=== PATIENT | male | born 2005 | race Two or more races ===

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

== ENCOUNTER 2025-02-16 08:18 | Emergency (ER) | payer OTHER ==
[~2025-02-16] VITALS: Ht 170.2 cm; Wt 65.8 kg
[2025-02-16] MEDS ORDERED: 0.9 % SODIUM CHLORIDE 1,000 ML IV STA (08:31)
[2025-02-16] MEDS ORDERED: LEVO-T25 MCG PO (08:42)
[2025-02-16] MEDS ORDERED: ACETAMINOPHEN 500 MG GEL..CAP PO ONE (09:15)
[2025-02-16 09:33] LABS: BASO % 0.7 % (0.1-1.2); EOS # 0.06 (0.04-0.54); EOS % 1.1 % (0.7-7.0); HEMATOCRIT 39.9 % (40.1-51.0); HEMOGLOBIN 14.2 g/dL (13.7-17.5); LYMPH # 1.23 (1.18-3.74); LYMPH % 22.8 % (19.3-53.1); MONO # 0.41 (0.24-0.82); MONO % 7.6 % (4.7-12.5); NEUT # 3.64 (1.56-6.13); NEUT % 67.6 % (34.0-71.1); PLATELET COUNT 215 K/uL (163-369); RED BLOOD COUNT 4.58 M/uL (4.63-6.08); RED CELL DISTRIBUTION WIDTH 12.1 % (11.6-14.4)
[2025-02-16 09:51] LABS: PH,URINE 5.5 (5.0-8.0); URINE APPEARANCE Clear; URINE BILIRRUBIN Negative (NEGATIVE); URINE BLOOD Negative; URINE COLOR Yellow; URINE GLUCOSE Negative (NEGATIVE); URINE KETONE Negative (NEGATIVE); URINE LEUKOCYTE Negative; URINE NITRATE Negative; URINE PROTEIN Negative (NEGATIVE); URINE UROBILINOGEN 0.2 E.U./dl
[2025-02-16 09:53] LABS: URINE RBC 7.9 uL (0.0-20.8)
[2025-02-16] MEDS ORDERED: ONDANSETRON HCL 2 MG/ML VIAL IV STA (09:53)
[2025-02-16 10:02] LABS: URINE EPITHELIAL CELLS 0.6 uL (0.0-38.8); URINE WBC 1.4 uL (0.0-23.2)
[2025-02-16 10:22] LABS: COCAINE NEGATIVE (NEGATIVE); METHADONE NEGATIVE (NEGATIVE); OPIATES NEGATIVE (NEGATIVE); THC ( Cannabinoids) NEGATIVE (NEGATIVE)
[2025-02-16 11:01] LABS: ALBUMIN 3.9 gm/dL (3.4-5.0); BILIRUBIN TOTAL 0.95 mg/dL (0.3-1.2); CALCIUM 8.7 mg/dL (8.5-10.1); CREATININE SERUM 1.2 mg/dL (0.70-1.30); GLOBULINA 2.6 G/DL (2.4-3.5); POTASSIUM 4.14 mEq/L (3.5-5.1); TOTAL PROTEIN 6.5 gm/dL (6.4-8.2); TSH 2.26 uIU/mL (0.358-3.74)
== END 2025-02-16 13:41 | disposition home or self-care (01) ==
LOC: EMR PED 08:18
PROVIDERS: Emergency Medicine
DX: R55 Syncope and collapse (principal); G40.89 Other seizures; E03.8 Other specified hypothyroidism

== ENCOUNTER → 2025-02-23 06:21 | Outpatient (CLI) | payer OTHER ==
[~2025-02-23 06:21] MED LIST: LEVO-T25 MCG PO
== END | disposition home or self-care (01) ==
LOC: LAB 06:21
PROVIDERS: ATTEND Anesthesiology
DX: E16.2 Hypoglycemia, unspecified (principal)

== ENCOUNTER 2025-09-18 15:02 | Outpatient (CLI) | payer OTHER ==
[2025-09-18 15:55] LABS: BASO % 0.6 % (0.1-1.2); EOS # 0.06 (0.04-0.54); EOS % 1.7 % (0.7-7.0); LYMPH # 0.78 (1.18-3.74); LYMPH % 22.3 % (19.3-53.1); MEAN PLATELET VOLUME 9.90 fl (9.4-12.4); MONO # 0.78 (0.24-0.82); NEUT # 1.86 (1.56-6.13); NEUT % 53.1 % (34.0-71.1); RED CELL DISTRIBUTION WIDTH 11.3 % (11.6-14.4)
[2025-09-18 16:37] LABS: BAND MAN 1.0 %; LYMPHOCYTE MAN 20.0 %; MONO % 22.3 % (4.7-12.5); NEUTROPHILS MAN 55.0 %
[2025-09-18 16:38] LABS: MONOCYTE MAN 21.0 %
[2025-09-18 16:45] LABS: INR 1.03
[2025-09-18 17:04] LABS: ALT/SGPT 41.0 U/L (12-78); AST/SGOT 31.0 U/L (15-37); BILIRUBIN TOTAL 0.9 mg/dL (0.3-1.2); BUN CREA RATIO 21.0 (7.0-25.0); CHOL HDL RATIO 2.4 (0-5.0); CREATININE SERUM 1.02 mg/dL (0.70-1.30); GFR 93.11; GLOBULINA 3.1 G/DL (2.4-3.5); GLUCOSE FASTING 89.0 mg/dL (65-100); HDL 58.0 mg/dl (40-60); LDL 72.0 mg/dl (0-130); OSMOLALITY SERUM 280.0 MOSM/KG (275-295); T4 TOTAL 7.63 UG/DL (4.5-12.1); TSH 1.16 uIU/mL (0.358-3.74); VLDL 7.0 (0-39)
== END 2025-09-18 15:08 | disposition home or self-care (01) ==
LOC: LAB 15:02
PROVIDERS: ATTEND Anesthesiology
DX: E03.9 Hypothyroidism, unspecified (principal); E16.2 Hypoglycemia, unspecified; Z01.89 Encounter for other specified special examinations

== ENCOUNTER 2025-09-26 11:27 | Outpatient (CLI) | payer OTHER ==
[2025-09-26 12:08] LABS: BASO % 1.2 % (0.1-1.2); EOS # 0.03 (0.04-0.54); EOS % 0.4 % (0.7-7.0); LYMPH # 3.86 (1.18-3.74); LYMPH % 56.8 % (19.3-53.1); MEAN PLATELET VOLUME 9.90 fl (9.4-12.4); MONO # 0.61 (0.24-0.82); MONO % 9.0 % (4.7-12.5); NEUT # 2.21 (1.56-6.13); NEUT % 32.5 % (34.0-71.1); RED CELL DISTRIBUTION WIDTH 11.4 % (11.6-14.4)
[2025-09-26 12:39] LABS: LYMPHOCYTE MAN 67.0 %; MONOCYTE MAN 1.0 %; NEUTROPHILS MAN 32.0 %
== END 2025-09-26 23:00 | disposition home or self-care (01) ==
LOC: LAB 11:27
PROVIDERS: ATTEND Anesthesiology
DX: D72.821 Monocytosis (symptomatic) (principal); Z01.89 Encounter for other specified special examinations